=== PATIENT | female | born 1965 | race African-American/Black ===

== ENCOUNTER 2016-10-29 21:35 | Emergency (ER) | payer BC ==
--- NOTE | ~2016-10-29 | EKG ---
PATIENT: MOISÉS GRANADOS UNIT #: [id number] Ventricular Rate: 109 BPM Atrial Rate: 109 BPM P-R Interval: 150 ms QRS Duration: 66 ms Q-T Interval: 338 ms QTC Calculation(Bezet): 455 ms P [place]: 70 degrees Calculated R [place]: 42 degrees Calculated T [place]: 15 degrees Diagnosis Line: Sinus tachycardia Diagnosis Line: Otherwise normal ECG Diagnosis Line: Diagnosis Line: Confirmed by ANTONIO SY MD ([id number]) on Diagnosis Line: 10/31/2016 9:59:03 AM INTERPRETING : ATLI
--- NOTE | ~2016-10-29 | CR72 ---
[facility] A Service of [facility] & [facility] RADIOLOGY TEXT RESULTS PATIENT: MOISÉS GRANADOS LOCATION: [facility] : 67 UNIT #: [id number] AGE: [address]: Urbano Nino MD SEX: F ORDER DR: [id number] [facility] [address] [place], [place] [address] [id number] E MR#: [id number] Acc #: [id number] NAME: MOISÉS GRANADOS : 1965 SEX: F STUDY DATE/TIME: 10/29/2016 22:47 UNIT: [facility] ROOM: STUDY DESCRIPTION: CR Chest Single View Portable Attending Physician: August Nino M.D. Ordering Physician: Ed Raf Gilbert M.D. Primary Care Physician: Chris Gee M.D. MEDICAL IMAGING REPORT This report is preliminary unless electronic signature is present EXAM Portable chest. INDICATIONS Chest pain starting today with congestion. FINDINGS A portable view of the chest was obtained. The heart size and vascularity are normal. The lungs are clear and the bones are unremarkable. IMPRESSION No active disease. Dictated by... Zach Chao M.D. THIS IS AN ELECTRONICALLY VERIFIED REPORT Zach Chao M.D. at 10/30/2016 8:21 PM ELIDA/sudarshan TD: 10/30/2016 13:43 JOB #: [id number] MEDICAL IMAGING REPORT Page 1 of 1 COPY
[2016-10-29 23:57] LABS: BASOPHIL% 0.3 % (0-2.5); EOSINOPHIL% 0.6 % (0.0-7.0); HEMATOCRIT 40.1 % (35.0-45.0); LYMPHOCYTE# 1.5 X10e3 (1.0-3.5); LYMPHOCYTE% 21.7 % (17.0-45.0); MEAN CELL VOLUME 89.8 FL (83-96); MEAN CORPUSCULAR HEMOGLOBIN 29.1 PG (28-34); MEAN CORPUSCULAR HGB CONC 32.4 g/dL (30-36); MEAN PLATELET VOLUME 8.8 FL (6.5-11.5); MONOCYTE# 0.5 X10e3 (0-1.0); MONOCYTE% 7.7 % (3.0-12.0); NEUTROPHIL# 4.9 X10e3 (1.5-7.1); NEUTROPHIL% 69.7 % (40-75); PLATELET COUNT 245 X10e3 (140-420); RED BLOOD COUNT 4.47 X10e (3.90-5.30); RED CELL DISTRIBUTION WIDTH 14.1 % (11.0-15.5)
[2016-10-29 23:58] LABS: DIFF IND NO
[2016-10-30 00:07] LABS: POC - CKMB <1.0 ng/mL (0.0-7.9); POC - TROPONIN <0.05 ng/mL (<=0.05)
[2016-10-30 00:08] LABS: POC - CKMB <1.0 ng/mL (0.0-7.9); POC - TROPONIN <0.05 ng/mL (<=0.05)
[2016-10-30 00:13] LABS: BUN/CREATININE RATIO 14.28; CALCIUM SERUM 8.7 mg/dL (8.4-10.2); CREATININE SERUM 0.7 mg/dL (0.6-1.4); GLOM FILT RATE Estimated 117.1 mL/min (>60); POTASSIUM 3.4 mmol/L (3.5-5.1)
== END 2016-10-30 00:56 | disposition home or self-care (01) ==
LOC: CED 21:35
PROVIDERS: Emergency Medicine
DX: R07.9 Chest pain, unspecified (principal); K21.9 Gastro-esophageal reflux disease without esophagitis; Z91.040 Latex allergy status
CPT/HCPCS: 36415; 71010; 80048; 82553; 84484; 85025; 93005; 99285